=== PATIENT | male | born 1950 | race Caucasian/White ===

== ENCOUNTER 2024-05-01 21:13 | Emergency (ER) | payer OTHER, MEDICAID ==
[~2024-05-01] VITALS: Ht 175.3 cm; Wt 90.0 kg
[2024-05-01 21:20] VITALS: O2SAT 100
[2024-05-01 22:56] LABS: HEMATOCRIT. 39.7 % (42.0-52.0); HEMOGLOBIN. 13.2 g/dL (14.0-18.0); MEAN CORPUSCULAR HEMOGLOBIN 32.5 pg (28.0-32.0); MEAN CORPUSCULAR HGB CONC 33.3 g/dL (31.0-37.0); MEAN CORPUSCULAR VOLUME 97.5 fL (80.0-94.0); MEAN PLATELET VOLUME 9.2 fl (7.4-10.4); PLATELET 187 x1000/uL (130-400); RED BLOOD CELL COUNT 4.07 mill/uL (4.7-6.1); RED CELL DISTRIBUTION WIDTH 17.7 % (11.6-14.6); WHITE BLOOD COUNT 11.6 x1000/uL (4.5-11.0)
[2024-05-01 22:57] LABS: DIFFERENTIAL COMMENT 1
[2024-05-01 23:00] LABS: CHLORIDE 104 mEq/L (98-107); POTASSIUM 3.7 mEq/L (3.5-5.1); SODIUM 135 mEq/L (136-145)
[2024-05-01 23:01] LABS: CALCIUM 8.4 mg/dL (8.7-10.4); CARBON DIOXIDE 19 mEq/L (21-32)
[2024-05-01 23:04] VITALS: TEMP 97.8
[2024-05-01] MEDS: ACETAMINOPHEN 325MG TABLET PO ONE (23:04)
[2024-05-01 23:06] LABS: CREATININE 0.7 mg/dL (0.6-1.3); GLUCOSE 127 mg/dL (70-105); PROTHROMBIN TIME 10.8 sec (9.6-11.0); UREA NITROGEN BLOOD 6 mg/dL (9-23)
[2024-05-01 23:10] LABS: PLATELET ESTIMATE NORMAL
[2024-05-01] MEDS: ONDANSETRON HCL 4MG/2ML INJ IV ONE (23:10)
[2024-05-01] MEDS: MORPHINE SULFATE 4 MG/ML INJ (FOR IV/IM USE) IV ONE (23:10)
[2024-05-01] MEDS: SODIUM CHLORIDE 0.9% 1,000 ML IV ONE (23:21)
[2024-05-02 01:32] VITALS: BP 165/82; PULSE 68; RESP 19
== END 2024-05-02 02:15 | disposition short-term general hospital (02) ==
LOC: ER 21:13
DX: S72.001A Fracture of unspecified part of neck of right femur, initial encounter for closed fracture (principal); F10.129 Alcohol abuse with intoxication, unspecified; I10 Essential (primary) hypertension; E78.00 Pure hypercholesterolemia, unspecified; W18.30XA Fall on same level, unspecified, initial encounter; Y93.89 Activity, other specified; Y92.89 Other specified places as the place of occurrence of the external cause; Y99.8 Other external cause status; Y90.6 Blood alcohol level of 120-199 mg/100 ml
CPT/HCPCS: 80048; 80320; 85025; 85610; 85730; 36415; 73502; 71045; 73030; 70450; 96361; 96374; 96375; 99291; 86850; 86900; 86901; J2405; J2270; J7030; G0480